=== PATIENT | female | born 1975 | race African-American/Black ===

== ENCOUNTER 2021-01-30 14:13 | Emergency (ER) | payer BC ==
[~2021-01-30] VITALS: Ht 160 cm; Wt 64.9 kg
[~2021-01-30 14:13] MED LIST: ACETAMINOPHEN-1 EAC1 PO; ALDACTONE100 MG PO; ALDACTONE50 MG PO; AUGMENTIN 875-1 EACH PO; BENADRYL25 MG PO; CEPHALEXIN 500500 M3 PO; IBUPROFEN 600600 M1 PO; IBUPROFEN 800800 M1 PO; MIRENA; MIRENA1 EACH; NORCO 5-325 TA1 EACH PO; NORFLEX100 MG PO; ONDANSETRON HCL4 M2 PO; ORACEA40 MG PO; PHENERGAN 25 MG25 M1 PO; PREDNISONE50 MG PO; PRILOSEC 20 MG20 MG; PRINCIPEN500 MG PO; PROGESTERONE100 MG PO; PROMS25 WY RECTAL; PROTONIX40 M2 OR; SENNA S TABLET1 EACH PO; STRESSTABS1 EACH OR; TRINATE TABLET1 TAB PO; UNICOMPLEX M TA1 TA1 PO; UNISOM25 MG PO; VITAFOL-OB+DHA1 EACH PO
[2021-01-30] MEDS ORDERED: OMEPRAZOLE40 MG PO (14:23)
[2021-01-30] MEDS ORDERED: ZOFRAN 4 MG ORAL4 MG PO (14:23)
[2021-01-30] MEDS ORDERED: BUTALB-APAP-CA1 EACH PO (15:14)
[2021-01-30] MEDS ORDERED: FLEXERIL PO (15:14)
[2021-01-30 15:29] VITALS: BP 131/70
== END 2021-01-30 15:30 | disposition home or self-care (01) ==
LOC: M.ERS 14:13
DX: S16.1XXA Strain of muscle, fascia and tendon at neck level, initial encounter (principal); R51.9 Headache, unspecified; Z90.49 Acquired absence of other specified parts of digestive tract; W22.8XXA Striking against or struck by other objects, initial encounter; Y93.89 Activity, other specified; Y92.89 Other specified places as the place of occurrence of the external cause; Y99.8 Other external cause status

== ENCOUNTER 2021-05-24 04:38 | Emergency (ER) | payer BC ==
[~2021-05-24] VITALS: Ht 160 cm; Wt 68.0 kg
[~2021-05-24 04:38] MED LIST changes: +BUTALB-APAP-CA1 EACH PO; +FLEXERIL PO; +OMEPRAZOLE40 MG PO; +ZOFRAN 4 MG ORAL4 MG PO
[2021-05-24] MEDS ORDERED: ZOFRAN ODT4 MG PO (06:48)
[2021-05-24] MEDS ORDERED: PERCOCET PO (06:48)
[2021-05-24 07:16] VITALS: BP 114/71
== END 2021-05-24 07:18 | disposition home or self-care (01) ==
LOC: M.ERS 04:38
DX: S00.83XA Contusion of other part of head, initial encounter (principal); M79.644 Pain in right finger(s); Z98.84 Bariatric surgery status; Z90.49 Acquired absence of other specified parts of digestive tract; Z79.899 Other long term (current) drug therapy; Y08.89XA Assault by other specified means, initial encounter; Y93.89 Activity, other specified; Y92.89 Other specified places as the place of occurrence of the external cause; Y99.8 Other external cause status

== ENCOUNTER 2021-06-23 13:03 | Emergency (ER) | payer BC ==
[~2021-06-23] VITALS: Ht 160 cm; Wt 68.0 kg
[~2021-06-23 13:03] MED LIST changes: +PERCOCET PO; +ZOFRAN ODT4 MG PO
[2021-06-23 13:54] LABS: URINE BILIRUBIN NEGATIVE (Negative); URINE BLOOD 2+ (Negative); URINE CLARITY CLEAR; URINE COLOR YELLOW; URINE GLUCOSE-RANDOM NEGATIVE (Negative); URINE KETONES TRACE (Negative); URINE LEUKOCYTES-REFLEX NEGATIVE (Negative); URINE NITRITE-REFLEX NEGATIVE (Negative); URINE PROTEIN NEGATIVE (Negative); URINE SPECIFIC GRAVITY 1.025 (1.005-1.030)
[2021-06-23 14:02] LABS: BACTERIA-REFLEX None Seen /HPF (None Seen); CASTS None Seen /LPF (None Seen); CRYSTALS None Seen /LPF (None Seen); SQUAMOUS 0-3 Few /LPF (0-3); URINE RBC 0-2 Rare /HPF (0-2); URINE WBC-REFLEX None Seen /HPF (0-5)
[2021-06-23 15:20] LABS: ABSOLUTE BASOPHILS 0.1 thou/uL (0.0-0.2); ABSOLUTE EOSINOPHILS 0.1 thou/uL (0.0-0.7); ABSOLUTE LYMPHOCYTES 1.6 thou/uL (0.8-5.3); ABSOLUTE MONOCYTES 0.4 thou/uL (0.0-1.2); ABSOLUTE NEUTROPHILS 5.5 thou/uL (1.6-8.1); BASOPHILS 0.8 %; HEMATOCRIT 34.4 % (37.0-47.0); HEMOGLOBIN 11.4 gm/dL (12.0-15.0); LYMPHOCYTES 21.1 %; MONOCYTES 5.6 %; MPV 6.9 fl. (7.2-11.1); NUCLEATED RBCS 0 /100WBC; PLATELET COUNT* 338 thou/uL (150-400); POLYS 71.5 %; RBC 3.91 mil/uL (4.20-5.00); RDW-CV 13.8 % (10.5-14.5); WBC 7.7 thou/uL (4.0-11.0)
[2021-06-23 15:28] LABS: CALCIUM 8.2 mg/dL (8.5-10.1); CREATININE 0.9 mg/dL (0.6-1.3)
[2021-06-23 15:33] LABS: ALBUMIN 3.6 g/dL (3.4-5.0); TOTAL BILIRUBIN 0.3 mg/dL (<0.1-1.0); TOTAL PROTEIN 7.3 g/dL (6.4-8.2)
[2021-06-23 16:00] VITALS: BP 121/69
== END 2021-06-23 16:01 | disposition home or self-care (01) ==
LOC: M.ERS 13:03
PROVIDERS: Family Medicine; Nurse Practitioner Family
DX: N83.202 Unspecified ovarian cyst, left side (principal); G35 Multiple sclerosis; Z90.49 Acquired absence of other specified parts of digestive tract; Z79.899 Other long term (current) drug therapy; Z88.5 Allergy status to narcotic agent; Z86.73 Personal history of transient ischemic attack (TIA), and cerebral infarction without residual deficits